=== PATIENT | male | born 1950 | race Caucasian/White ===

== ENCOUNTER 2020-03-06 11:26 | Outpatient (CLI) | payer MEDICARE, MEDICAID, SELFPAY ==
[2020-03-06 11:47] LABS: Hematocrit 39.2 % (37.0-46.0); Hemoglobin 14.1 g/dL (12.4-15.3); Mean Corpuscular Hemoglobin 34.6 pg (27.0-31.0); Mean Corpuscular Volume 96.1 fL (78.0-102.0); Platelet Count Result 316 K/mm3 (150-420); Red Blood Count 4.08 M/mm3 (4.70-6.10); Red Cell Distribution Width 12.4 % (11.6-14.4); White Blood Count 13.4 K/mm3 (4.8-10.8)
[2020-03-06 12:32] LABS: Band Neutrophils Percent 11 % (0-6); Basophils Percent Manual 0 % (0-1); Eosinophils Percent Manual 0 % (1-6); Lymphocytes Absolute Manual 0.53 K/mm3 (1.1-4.5); Lymphocytes Percent Manual 4 % (18-44); Metamyelocytes Percent 2 %; Monocytes Absolute Manual 0.67 K/mm3 (0.1-0.90); Monocytes Percent Manual 5 % (3-9); Myelocytes Percent 1 %; Neutrophils Absolute Manual 11.79 K/mm3 (1.3-6.7); Neutrophils Percent Manual 77 % (46-73); Platelet Estimate Adequate (Adequate); Total Cells Counted 100
[2020-03-06 12:52] LABS: Alanine Aminotransferase 40 U/L (16-63); Albumin Level 2.9 g/dL (3.4-5.0); Alkaline Phosphatase 79 U/L (46-116); Anion Gap 11 mmol/L (8-16); Aspartate Amino Transferase 48 U/L (15-37); Blood Urea Nitrogen 13 mg/dL (7-18); Calcium 8.8 mg/dL (8.5-10.1); Carbon Dioxide 26 mmol/L (21-32); Chloride 87 mmol/L (98-108); Estimated Glomerular Filt Rate > 60; Glucose 134 mg/dL (70-99); Osmolality Calculated 260 mOsm/kg (285-295); Potassium 3.8 mmol/L (3.5-5.1); Prostate Specific Antigen 1.5 ng/mL (< OR = 4.0); Sodium 124 mmol/L (136-145); Thyroid Stimulating Hormone 3.12 uIU/mL (0.36-3.74); Total Protein 6.5 g/dL (6.4-8.2)
[2020-03-07 14:05] LABS: SARS-CoV-2 RNA PCR Negative
== END 2020-03-06 11:27 | disposition home or self-care (01) ==
PROVIDERS: PCP Family Medicine; Visit Provider Family Medicine
DX: R42 Dizziness and giddiness (principal); R10.9 Unspecified abdominal pain; Z12.5 Encounter for screening for malignant neoplasm of prostate; R50.9 Fever, unspecified; Z20.828 Contact with and (suspected) exposure to other viral communicable diseases; D64.9 Anemia, unspecified
CPT/HCPCS: 36415; 80053; 84153; 84443; 85025; 87635; C9803; G0103; U0003

== ENCOUNTER 2020-03-07 15:09 | Emergency (ER) | payer MEDICAID, SELFPAY ==
--- NOTE | ~2020-03-07 | CT_ITS ---
EXAMINATION: CT abdomen pelvis w con EXAM DATE: 03/07/2020 18:12 INDICATION: Sepsis, abdominal distention. TECHNIQUE: Spiral CT of the abdomen and pelvis was performed following intravenous injection of 100 m L Omnipaque 350. Axial, coronal and sagittal images were reviewed. The dose-length product (DLP) fo r this examination was 711.16 mGy-cm. The exposure was tailored according to patient size (auto mA e xposure control), and iterative reconstruction (ASIR) was used as additional dose reduction technique . There is no prior study for comparison. FINDINGS: There are small foci of gas in the right perirectal region, right inguinal region, many mor e foci in the right-sided of the pelvis obturator region and presacral region, and many foci extendin g along the iliopsoas muscle up to the crux of the diaphragm. Origin is uncertain, but fasciitis shou ld be suspected. Recommend emergent surgical consult. I discussed these findings, recommendation with Gus Mckeon MD at 03/07/2020 18:21 CDT. Pancreatic tail cystic lesion measuring 1.2 cm, most likely benign finding but one-year follow-up CT is indicated. The differential diagnosis includes pseudocyst, intraductal papillary mucinous neoplasm (IPMN), mucinous cystic neoplasm (MCN), and the less common serous cystadenoma and neuroendocrine tu mor. Correlate for history of pancreatitis. The liver, spleen, adrenal glands are unremarkable. Gallbladder is unremarkable. No biliary obstruc tion. Portal and splenic veins are patent. Kidneys enhance symmetrically. There is no hydronephros is. The prostate is unremarkable. Small left inguinal fat-containing hernia. Diffuse severe bladde r wall thickening, cystitis which could be acute and/or chronic. There is no retroperitoneal or pelv ic lymphadenopathy. There is mild to moderate scattered arteriosclerotic disease. The appendix is normal. The stomach and small bowel are unremarkable. There is moderate to large am ount of colonic gas. No free intraperitoneal gas. The heart is normal in size. There are no aristeo cardial or pleural effusions. The lung bases are unremarkable. The bones are unremarkable. IMPRESSION: 1. Extensive foci of gas extending in right-sided perineum, presacral region, extending along the co urse of the right iliopsoas muscle from the right groin to the diaphragm. Findings most consistent wi th extensive fasciitis. Emergent surgical consult indicated. 2. Small pancreatic cystic lesion likely benign but one-year follow-up abdomen CT recommended. 3. Acute or chronic cystitis. 4. Moderate to large amount of colonic gas. Reviewed, dictated and finalized at location A. IMPRESSION: 1. Extensive foci of gas extending in right-sided perineum, presacral region, extending along the course of the right iliopsoas muscle from the right groin t o the diaphragm. Findings most consistent with extensive fasciitis. Emergent hunt rgical consult indicated. 2. Small pancreatic cystic lesion likely benign but one-year follow-up abdomen CT recommended. 3. Acute or chronic cystitis. 4. Moderate to large amount of colonic gas.
--- NOTE | ~2020-03-07 | XR_ITS ---
EXAMINATION: XR chest 2V DATE: 03/07/2020 17:05 INDICATION: Generalized body pain, right lower lobe rales, shortness of breath and diaphoresis TECHNIQUE: AP and lateral views of the chest are obtained. COMPARISON: 11/12/2011 FINDINGS: The lungs are free of acute opacities. There is no pleural effusion or pneumothorax. The ca rdiomediastinal silhouette is normal. There is mild thoracic spondylosis. IMPRESSION: 1. No acute cardiopulmonary abnormality. Reviewed, dictated and finalized at location B.
[2020-03-07 15:25] VITALS: BP 125/78; PULSE 116; RESP 18; TEMP 36.8; O2SAT 97
--- NOTE | 2020-03-07 15:47 | ECG_ITS ---
Measurements Intervals [place] Rate: 120 P: 63 ME: 100 QRS: 91 QRSD: 98 T: 27 QT: 320 QTc: 453 Interpretive Statements SINUS TACHYCARDIA RIGHT AXIS DEVIATION DELAYED PRECORDIAL R/S TRANSITION BASELINE WANDER- II, III, AVR, AVL, AVF, V1-V6 ABNORMAL ECG Electronically Signed On 03-07-2020 15:56:31 CDT by Sunil Sanchez D.O.
[2020-03-07] MEDS: IPRATROPIUM 0.5 MG/ALBUTEROL SULFATE 2.5 MG AMPUL.NEB 3 ML INHALATION (15:58)
[2020-03-07 16:00] VITALS: PULSE 107; RESP 18
[2020-03-07] MEDS: SODIUM CHLORIDE 0.9% IV 1,000 ML 999 ML IV CONT ×3 (16:00→19:09)
[2020-03-07 16:07] VITALS: PULSE 106; RESP 18
[2020-03-07 16:22] LABS: Hematocrit 37.3 % (37.0-46.0); Hemoglobin 13.4 g/dL (12.4-15.3); Mean Corpuscular HGB Conc 35.9 g/dL (32.0-36.0); Mean Corpuscular Hemoglobin 34.4 pg (27.0-31.0); Mean Corpuscular Volume 95.6 fL (78.0-102.0); Platelet Count Result 290 K/mm3 (150-420); Red Cell Distribution Width 12.5 % (11.6-14.4); White Blood Count 8.1 K/mm3 (4.8-10.8)
[2020-03-07 16:36] LABS: INR 1.1; Partial Thromboplastin Time 33.4 SEC (22.3-31.6); Prothrombin Time 11.3 Seconds (9.64-11.0)
[2020-03-07 16:42] LABS: Lactic Acid Reflex 5.8 mmol/L (0.4-2.0)
--- NOTE | 2020-03-07 16:43 | ED.SOB ---
HPI - SOB/Dyspnea General Chief Complaint: Back Pain/Injury Stated Complaint: body pain Time Seen by Provider: 03/07/20 15:25 Source: patient and family Mode of arrival: wheelchair Limitations: no limitations History of Present Illness HPI Narrative: 69-year-old man brought in today by his daughter for shortness of breath, sweating, and back pain. He states that the shortness breath and back pain started a week or 2 ago. He has had no falls or injuries as of late. He denies chest pain, nausea, fever, cough, sputum production, abdominal pain, dysuria or change in appetite. He denies any sick contacts. His primary care doctor saw him yesterday and ordered some labs which were fairly [place] [id number] and a negative SARS-CoV-2 RNA test. elicited complaint: shortness of breath Pertinent past history: COPD Onset (ago): week(s) Timing: constant Severity: moderate Exacerbating factors: exertion Relieving factors: rest Known history of: COPD Associated symptoms: wheezing Treatment prior to arrival: none Related Data Home oxygen amount: none Home Medications Medication Instructions Recorded Confirmed No Home Medications 03/07/20 03/07/20 Allergies Allergy/AdvReac Type Severity Reaction Status Date / Time amoxicillin [From Amoxil] Allergy Hives Verified 03/07/20 15:32 Review of Systems Constitutional: Constitutional: Denies chills, Denies fever(s) and Reports weakness Eyes: Eyes: Denies change in vision and Denies photophobia ENT: Denies dysphagia, Denies nasal congestion and Denies sore throat Cardiovascular: Cardiovascular: Denies chest pain and Denies radiating jaw, neck or arm pain Respiratory: Respiratory: Denies cough, Reports dyspnea and Reports wheezing Gastrointestinal: Gastrointestinal: Denies abdominal pain, Denies diarrhea, Denies nausea and Denies vomiting Genitourinary: Genitourinary: Denies dysuria and Denies urinary frequency Musculoskeletal: Musculoskeletal: Denies back pain, Denies arthralgias and Denies joint swelling Integumentary/Breasts: Skin/Breast: Reports pruritus, Reports erythema and Reports rash Neurologic: Reports vertigo, Reports dizziness and Reports syncope Endocrine: Endocrine: Denies polydipsia and Denies polyuria Hematologic/Lymphatic: Hematologic/Lymphatic: Denies easy bleeding and Denies easy bruising Allergic/Immunologic: Allergic/Immunologic: Denies lip swelling and Denies wheezing PMFSH Past Medical History Medical History BPH (benign prostatic hyperplasia) COPD (chronic obstructive pulmonary disease) Surgical History Surgical History H/O vasectomy Social History Social History Smoking status: Current every day smoker Alcohol intake: current Substance use: never Living arrangements: with family Gender identity (if verbalized by the patient): Male Exam Const: General: alert and ill appearing Orientation/consciousness: patient oriented x3 Limitations: no limitations Other: mild moderate acute distress. HENMT: Head: normal to inspection Face and sinus: normal facial exam Mouth: Yes moist mucous membranes Throat: posterior oropharynx normal Eyes: Conjunctivae: conjunctivae normal Pupils: Equal, round and reactive pupils present EOM: EOMs intact bilaterally Neck: Neck: normal visual inspection and no lymphadenopathy Resp: Effort & Inspection: no retractions and no use of accessory muscles Auscultation: rales on the right at the base, wheezes ( Slightly increased expiratory phase.) expiratory wheezes and throughout and diminished lung sounds on the right in the lower lung kaur Other: Mild increased work of breathing. No accessory muscle use. Cardio: Rate: tachycardic Rhythm: regular rhythm Heart sounds: no murmurs GI: Inspection: dist
[2020-03-07 16:45] LABS: Alanine Aminotransferase 42 U/L (16-63); Alkaline Phosphatase 63 U/L (46-116); Anion Gap 16 mmol/L (8-16); Aspartate Amino Transferase 63 U/L (15-37); Bilirubin,Total 0.7 mg/dL (0.00-1.00); Blood Urea Nitrogen 37 mg/dL (7-18); Calcium 8.6 mg/dL (8.5-10.1); Carbon Dioxide 21 mmol/L (21-32); Chloride 89 mmol/L (98-108); Estimated CRCL calculation 34 ml/min; Estimated Glomerular Filt Rate 34; Glucose 161 mg/dL (70-99); Osmolality Calculated 273 mOsm/kg (285-295); Potassium 3.4 mmol/L (3.5-5.1); Sodium 126 mmol/L (136-145); Total Protein 6.2 g/dL (6.4-8.2)
[2020-03-07 16:49] LABS: Band Neutrophils Percent 18 % (0-6); Lymphocytes Percent Manual 5 % (18-44); Monocytes Absolute Manual 0.64 K/mm3 (0.1-0.90); Monocytes Percent Manual 8 % (3-9); Neutrophils Absolute Manual 7.04 K/mm3 (1.3-6.7); Neutrophils Percent Manual 69 % (46-73); Total Cells Counted 100; Troponin I < 0.02 ng/mL (0.00-0.056)
[2020-03-07 16:50] LABS: Basophils Percent Manual 0 % (0-1); Eosinophils Percent Manual 0 % (1-6); Platelet Estimate Adequate (Adequate); Toxic Granulation Present (NORMAL)
--- NOTE | 2020-03-07 17:00 | PC.NURSE ---
duoneb at 1555 given per resp therapist.
[2020-03-07 17:06] VITALS: BP 118/70; PULSE 100; RESP 16; TEMP 36.6; O2SAT 97
[2020-03-07 17:11] LABS: CRP > 25.0 mg/dL (0.0-0.9)
[2020-03-07 17:21] LABS: Lipase 19 U/L (73-393)
--- NOTE | 2020-03-07 17:21 | PC.NURSE ---
pt unable to urinate via urinal. normally incontinent or bowel and bladder. adult protector removed et was saturated. aristeo care provided. new adult protector applied. pt stands to attempt urination with mod assistance to help balance. denies pain or sob at this time. resp even and non-labored.
[2020-03-07 17:30] LABS: BNP 537 pg/mL (0-100)
[2020-03-07 17:49] LABS: Add Urine Microscopic? YES; Appearance Urine Cloudy (Clear); Bilirubin Urine 1+ (Negative); Blood Urine 3+ (Negative); Glucose Urine UA Negative (Negative); Ketones Urine Trace (Negative); Leukocyte Esterase Ur Negative LEU/UL (Negative); Nitrate Urine Negative (Negative); Protein Urine 2+ (Negative); Specific Grav Ur 1.025 (1.010-1.020)
[2020-03-07 17:57] LABS: Color Urine Orange (Yellow); Squamous Epithelial Cell Urine Rare /hpf (Few); WBC Urine None seen /hpf (0-3)
[2020-03-07 17:58] LABS: Amorphous Sediment Urine Heavy; Bacteria Urine Trace /hpf; Mucus Urine None seen /lpf
--- NOTE | 2020-03-07 18:24 | PC.NURSE ---
Call back from Radiologist, spoke to ERP and need for emergent transfer due to results. Call placed to [facility] message left and no answer. Spoke to pt. and family, request transfer to [facility]. Call then placed to [facility].
[2020-03-07 18:47] VITALS: BP 117/77; PULSE 99; RESP 20; O2SAT 97
--- NOTE | 2020-03-07 18:48 | PC.NURSE ---
Accepting Dr. Sullivan at [facility]. Paperwork signed for transfer.
[2020-03-07 18:59] VITALS: BP 117/77; PULSE 100; RESP 20; TEMP 36.7; O2SAT 97
--- NOTE | 2020-03-07 19:12 | PC.NURSE ---
[facility] called for pt. transfer.
[2020-03-07 19:21] LABS: Reflex Lactic Acid Yes or No Add Lactic
[2020-03-07 20:21] LABS: Lactic Acid 3.2 mmol/L (0.4-2.0)
== END 2020-03-07 19:32 | disposition short-term general hospital (02) ==
PROVIDERS: Emergency Provider Emergency Medicine; PCP Family Medicine
DX: A41.9 Sepsis, unspecified organism (principal); R65.20 Severe sepsis without septic shock; N17.9 Acute kidney failure, unspecified; J44.9 Chronic obstructive pulmonary disease, unspecified; F17.200 Nicotine dependence, unspecified, uncomplicated
CPT/HCPCS: 36415; 51701; 71046; 74177; 80053; 81001; 83605; 83690; 83880; 84484; 85025; 85610; 85730; 86140; 87040; 87077; 93005; 94640; 96361; 96365; 96375; 99285; J0713; J3370; J7030; Q9965

== ENCOUNTER 2020-11-13 09:16 | Outpatient (CLI) | payer MEDICARE, MEDICAID, SELFPAY ==
--- NOTE | ~2020-11-13 | XR_ITS ---
XR elbow RT min 3V DATE: 11/13/2020 09:35 INDICATION: Right elbow effusion, lanced by doctor. TECHNIQUE: 4 views COMPARISON: None FINDINGS: There is dorsal soft tissue swelling over the olecranon process, suggesting olecranon bursi tis. Mild coronoid process spurring of the proximal ulna. No fracture or dislocation of the elbow or elbow joint effusion. No periosteal reaction or bone destr uction. IMPRESSION: Dorsal olecranon process area soft tissue swelling suggesting olecranon bursitis Reviewed, dictated and finalized at location B. IMPRESSION: Dorsal olecranon process area soft tissue swelling suggesting olecr anon bursitis
== END 2020-11-13 09:17 | disposition home or self-care (01) ==
PROVIDERS: PCP Family Medicine; Visit Provider Family Medicine
DX: M25.421 Effusion, right elbow (principal)
CPT/HCPCS: 73080

== ENCOUNTER 2022-01-09 15:58 | Emergency (ER) | payer MEDICARE, MEDICAID, SELFPAY ==
--- NOTE | ~2022-01-09 | CT_ITS ---
EXAMINATION: CT brain wo con DATE: 01/09/2022 16:39 INDICATION: CVA-r arm/face numbness/ tingling/weakness . TECHNIQUE: Computed tomography (CT) of the head was performed without intravenous contrast. The mA wa s adjusted according to patient size. Iterative reconstruction technique was employed. The dose-lengt h product was 605.33 mGy-cm. COMPARISON: None FINDINGS: No acute intracranial hemorrhage or extra-axial fluid collection. No hydrocephalus, mass, or herniation. No acute ischemic infarct. Unremarkable dural venous sinus attenuation. No acute osseous abnormality. The aerated spaces are clear. Mild atrophy and chronic white matter change. Atherosclerotic intracranial calcification. Old left ba nevaeh ganglia, infarcts. IMPRESSION: No acute intracranial process. Reviewed, dictated and finalized at location K.
--- NOTE | 2022-01-09 16:09 | ED.NEUROSD ---
HPI - Neuro Symptoms/Deficit General Chief Complaint: Weakness Stated Complaint: hand, facial numbness, abnormal speech Time Seen by Provider: 01/09/22 16:09 Source: patient History of Present Illness HPI Narrative: 71-year-old male, smoker presents to the ER with a 1-1/2 history of -- numbness of right cheek mucosal surface and right hand no motor deficits. Onset (ago): hour(s) ( Started1.5 hrs ago.) Last Observed Normal: 15:00 Timing confirmed by: spouse Severity: mild Quality: numb Relieving factors: none Exacerbating factors: none Context: sudden onset On Anticoagulants: No Associated symptoms: denies other symptoms Treatments Prior to Arrival: none Related Data Home Medications Medication Instructions Recorded Confirmed No Home Medications 03/07/20 01/09/22 Allergies Allergy/AdvReac Type Severity Reaction Status Date / Time amoxicillin [From Amoxil] Allergy Hives Verified 01/09/22 16:18 Review of Systems Review of Systems: All systems reviewed & are unremarkable except as noted in HPI and below Constitutional: Constitutional: Reports as per HPI and Reports no additional constitutional complaints Eyes: Eyes: Reports as per HPI and Reports no additional eye complaints ENT: Reports system reviewed and no additional complaints, except as documented and Reports as per HPI Cardiovascular: Cardiovascular: Reports as per HPI and Reports no additional cardiovascular complaints Respiratory: Respiratory: Reports as per HPI and Reports no additional respiratory complaints Gastrointestinal: Gastrointestinal: Reports as per HPI and Reports no additional gastrointestinal complaints Genitourinary: Genitourinary: Reports no additional male genitourinary complaints and Reports as per HPI Musculoskeletal: Musculoskeletal: Reports no additional musculoskeletal complaints and Reports as per HPI Integumentary/Breasts: Skin/Breast: Reports system reviewed and no additional complaints, except as docu and Reports as per HPI Neurologic: Reports system reviewed and no additional complaints, except as documented, Reports as per HPI and Reports numbness Comments: numbness of mucosal surface of the right cheek and right arm Psychiatric: Psychiatric: Reports no additional psychiatric complaints and Reports as per HPI Endocrine: Endocrine: Reports no additional endocrine complaints Hematologic/Lymphatic: Hematologic/Lymphatic: Reports no additional hematologic/lymphatic complaints and Reports as per HPI Allergic/Immunologic: Allergic/Immunologic: Reports no additional allergic/immunologic complaints and Reports as per HPI [facility] Past Medical History Medical History (Updated 01/09/22 @ 17:56 by Walter Moss MD) BPH (benign prostatic hyperplasia) COPD (chronic obstructive pulmonary disease) Surgical History Surgical History H/O vasectomy Social History Social History Smoking status: Current every day smoker Alcohol intake: current Substance use: never Gender identity (if verbalized by the patient): Male Exam Const: General: healthy appearing and no acute distress Nutritional Appearance: well nourished Orientation/consciousness: patient oriented x3 Limitations: no limitations HENMT: Head: normal to inspection Ears: external ears normal General nose exam: Normal external nose present Face and sinus: normal facial exam Mouth: Yes Normal oral and palatal mucosa present Throat: posterior oropharynx normal Eyes: Conjunctivae: conjunctivae normal Pupils: Equal, round and reactive pupils present EOM: EOMs intact bilaterally Direct Ophthalmoscopy: no photophobia Neck: Neck: normal visual inspection, no lymphadenopathy and no meningeal signs Chest: Chest palpation & inspection: normal inspection of the chest Resp: Effort & Inspection: normal respiratory effort Auscultation: diminish
[2022-01-09 16:10] VITALS: BP 170/100; PULSE 74; RESP 16; TEMP 36; O2SAT 98
[2022-01-09 16:13] LABS: Glucose Point of Care 113 mg/dl (65-105)
--- NOTE | 2022-01-09 16:24 | ECG_ITS ---
Measurements Intervals [place] Rate: 56 P: 53 TN: 145 QRS: -7 QRSD: 103 T: 61 QT: 444 QTc: 431 Interpretive Statements SINUS BRADYCARDIA BASELINE ARTIFACT- I, II, III, AVR, AVL, AVF, V2, V5 BORDERLINE ECG Electronically Signed On 01-09-2022 21:24:16 CDT by Sunil Sanchez D.O.
--- NOTE | 2022-01-09 16:50 | PC.NURSE ---
pt states the numbness in his mouth is getting better. denies pain. voids without difficulty for urine specimen. using right hand without difficulty to collect urine per urinal.
[2022-01-09 16:51] VITALS: BP 162/92; PULSE 68; RESP 16; O2SAT 98
[2022-01-09 17:08] LABS: Basophils Absolute Auto 0.06 K/mm3 (0.00-0.10); Basophils Percent Auto 0.9 % (0.0-1.0); Eosinophils Absolute Auto 0.13 K/mm3 (0.02-0.50); Eosinophils Percent Auto 1.9 % (1.0-6.0); Hematocrit 40.3 % (37.0-46.0); Hemoglobin 13.7 g/dL (12.4-15.3); Immature Granulocyte Absolute 0.02 K/mm3 (0.00-0.00); Immature Granulocyte Percent A 0.3 % (0.0-0.0); Lymphocytes Absolute Auto 2.05 K/mm3 (1.10-4.50); Lymphocytes Percent Auto 30.3 % (18.0-42.0); Mean Corpuscular Hemoglobin 30.9 pg (27.0-31.0); Monocytes Absolute Auto 0.62 K/mm3 (0.10-0.90); Monocytes Percent Auto 9.2 % (2.0-11.0); Neutrophils Absolute Auto 3.9 K/mm3 (1.7-7.2); Neutrophils Percent Auto 57.4 % (50.0-70.0); Platelet Count Result 297 K/mm3 (150-420); Red Blood Count 4.43 M/mm3 (4.70-6.10); White Blood Count 6.8 K/mm3 (4.8-10.8)
[2022-01-09 17:09] LABS: Add Urine Microscopic? NO; Appearance Urine Clear (Clear); Bilirubin Urine Negative (Negative); Blood Urine Negative (Negative); Color Urine Light Yellow (Yellow); Glucose Urine UA Negative (Negative); Ketones Urine Negative (Negative); Leukocyte Esterase Ur Negative (Negative); Nitrate Urine Negative (Negative); Protein Urine Negative (Negative); Specific Grav Ur <= 1.005 (1.010-1.020); Urobilinogen Urine 0.2 mg/dL (0.2-1.0)
[2022-01-09 17:19] LABS: INR 0.9; Prothrombin Time 10.3 Seconds (9.50-12.10)
[2022-01-09 17:36] LABS: Alanine Aminotransferase 40 U/L (16-63); Albumin Level 3.3 g/dL (3.4-5.0); Alkaline Phosphatase 86 U/L (46-116); Anion Gap 10 mmol/L (8-16); Aspartate Amino Transferase 19 U/L (15-37); Bilirubin,Total 0.4 mg/dL (0.00-1.00); Blood Urea Nitrogen 11 mg/dL (7-18); Calcium 8.8 mg/dL (8.5-10.1); Carbon Dioxide 22 mmol/L (21-32); Chloride 107 mmol/L (98-108); Estimated CRCL calculation 73 ml/min; Estimated Glomerular Filt Rate > 60; Glucose 98 mg/dL (70-99); Magnesium 1.9 mg/dL (1.8-2.4); Osmolality Calculated 287 mOsm/kg (285-295); Potassium 3.8 mmol/L (3.5-5.1); Sodium 139 mmol/L (136-145); Troponin I 7.2 ng/L (0.00-60.4)
[2022-01-09 17:38] LABS: NT Pro B Type Natriuretic Pept 103 pg/mL (0-125)
[2022-01-09 17:50] VITALS: BP 152/92; PULSE 60; RESP 14; O2SAT 96
== END 2022-01-09 18:01 | disposition home or self-care (01) ==
PROVIDERS: Emergency Provider Internal Medicine Critical Care Medicine; PCP Family Medicine
DX: I10 Essential (primary) hypertension (principal); F41.9 Anxiety disorder, unspecified; J44.9 Chronic obstructive pulmonary disease, unspecified; F17.200 Nicotine dependence, unspecified, uncomplicated
CPT/HCPCS: 36415; 70450; 80053; 81003; 82948; 83735; 83880; 84484; 85025; 85610; 85730; 93005; 99284

== ENCOUNTER 2022-01-16 10:06 | Outpatient (CLI) | payer MEDICARE, MEDICAID, SELFPAY ==
--- NOTE | ~2022-01-16 | MR_ITS ---
EXAMINATION: MR brain/brain stem wo/w con DATE: 01/16/2022 11:50 INDICATION: Numbness of the right palm and right-sided face x1 week. TECHNIQUE: Magnetic resonance imaging (MRI) of the brain and brainstem was performed with 16 mL Multi Nikki intravenous contrast. Sequences included sagittal and axial T1-weighted SE, axial diffusion-brennon ghted FS EPI ASSET, axial T2*-weighted GRE, axial T2-weighted FLAIR Propeller, and axial T2-weighted Propeller. Postcontrast axial and coronal T1-weighted SE was obtained. Apparent diffusion coefficient (ADC) maps were created. COMPARISON: CT brain 01/09/2022 FINDINGS: Focal infarct in the left thalamus, hyperintense on diffusion-weighted images, mildly hypointense on ADC map, mild hyperintensity on T2 and FLAIR, with mild enhancement, corresponding to acute infarct ( 24 hours to 1 week). Focal old left thalamic and right basal ganglia lacunar infarcts. No MRI evidenc e of hemorrhage or extra-axial collection. No suspicious foci of susceptibility to suggest prior intr aparenchymal hemorrhage. Mild scattered focal periventricular white matter changes of chronic small v essel disease. Mild atrophy. The ventricles are proportional to brain volume. Basal cisterns are pres erved. Flow voids are present. Orbits are within normal limits. Bilateral maxillary retention cysts o r polyps. IMPRESSION: 1. Focal acute ischemic infarct in the left thalamus. Reviewed, dictated and finalized at location K.
== END 2022-01-16 10:07 | disposition home or self-care (01) ==
LOC: CHSIMG 10:07
PROVIDERS: PCP Family Medicine; Visit Provider Family Medicine
DX: R20.0 Anesthesia of skin (principal)
CPT/HCPCS: 70553; A9577

== ENCOUNTER 2022-01-20 07:43 | Outpatient (CLI) | payer MEDICARE, MEDICAID, SELFPAY ==
--- NOTE | ~2022-01-20 | US_ITS ---
EXAMINATION: US carotid duplex BI DATE: 01/20/2022 08:27 INDICATION: Right-sided facial and hand numbness TECHNIQUE: Grayscale, color Doppler, and pulsed Doppler images of the cervical carotid arteries were obtained. The degree of vessel stenosis is placed in one of the following categories: normal, <50%, 5 0-69%, >=70% but less than near-occlusion, near-occlusion, or total occlusion. Note that percent sten osis relative to normal distal artery lumen diameter is indirectly measured from velocity measurement s as described by Gurwinder, et al. Radiology 2003; 229:340-346. Notes: Normal: Peak systolic velocity <125 centimeters/sec and no plaque <50%. Peak systolic velocity <125 ( EDV <40; ICA/CCA PSV ratio <2.0; used these factors only a tandem lesions or low cardiac output or co ntralateral disease) 50-69 %: PSV 125-230 (EDV 40-100; ratio 2-4) >= 70% but less than near occlusion: PSV greater than 230 (EDV > 100; ratio> 4.0) Near Occlusion: PSV that is variable; markedly narrowed lumen Occlusion: Absent flow on color/spectral Doppler and no lumen on marrero scale. COMPARISON: None. FINDINGS: RIGHT: The right common carotid artery (CCA) peak systolic velocity (PSV) is 80 cm/s. The right internal car otid artery (ICA) PSV is 65 cm/s. The right ICA end-diastolic velocity (EDV) is 22 cm/s. The right IC A/CCA PSV ratio is 0.8. The external carotid artery (ECA) PSV is 63 cm/s. There is antegrade flow in the right vertebral artery. LEFT: The left CCA PSV is 75 cm/s. The left ICA PSV is 61 cm/s. The left ICA EDV is 20 cm/s. The left ICA/C CA PSV ratio is 0.8. The ECA PSV is 69 cm/s. There is antegrade flow in the left vertebral artery. IMPRESSION: 1. Less than 50% stenosis in the right internal carotid artery by sonographic criteria. 2. Less than 50% stenosis in the left internal carotid artery by sonographic criteria. Reviewed, dictated and finalized at location A. IMPRESSION: 1. Less than 50% stenosis in the right internal carotid artery by sonographic c riteria. 2. Less than 50% stenosis in the left internal carotid artery by sonographic cr damiánia.
[2022-01-20 09:28] LABS: Cholesterol 195 mg/dL (0-200); HDL Direct 37 mg/dL (40-60); LDL Cholesterol Calculated 139 mg/dL (<130); Triglycerides 95 mg/dL (0-150)
[2022-01-21 09:34] LABS: LDL Cholesterol Direct 134 mg/dL (0-130)
== END 2022-01-20 07:44 | disposition home or self-care (01) ==
PROVIDERS: PCP Family Medicine; Visit Provider Family Medicine
DX: I63.81 Other cerebral infarction due to occlusion or stenosis of small artery (principal); I10 Essential (primary) hypertension; E75.6 Lipid storage disorder, unspecified
CPT/HCPCS: 36415; 80061; 83721; 93880

== ENCOUNTER 2022-01-25 14:09 | Outpatient (CLI) | payer MEDICARE, MEDICAID, SELFPAY ==
--- NOTE | 2022-01-25 01:00 | ECHO_ITS ---
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 Summary 1. Complete two-dimensional, color flow and Doppler transthoracic echocardiogram is performed. 2. Left ventricular chamber dimension is normal. 3. Left ventricular systolic function is normal, estimated at 65-70%. 4. The left ventricular diastolic function is grade I diastolic dysfunction. 5. E/e' 8 is minimally elevated. 6. There is trace mitral valve regurgitation. 7. There is trace tricuspid valve regurgitation. 8. No pulmonary hypertension, estimated pulmonary arterial systolic pressure is 30 mmHg. Left Ventricle E/e' 8 is minimally elevated. Left ventricular chamber dimension is normal. Left ventricular systolic function is normal, estimated at 65-70%. The left ventricular diastolic function is grade I diastolic dysfunction. Right Ventricle Right ventricular systolic function is normal and with normal TAPSE 2.8 cm. Right ventricular chamber dimension is normal. Left Atria Left atrial chamber dimension is normal. Right Atria Right atrial chamber dimension is normal. Aortic Valve The aortic valve is trileaflet. There is no aortic valve stenosis. There is no aortic valve regurgitation. Pulmonic Valve There is no pulmonic regurgitation. Mitral Valve There is no mitral valve stenosis. There is trace mitral valve regurgitation. Tricuspid Valve There is trace tricuspid valve regurgitation. No pulmonary hypertension, estimated pulmonary arterial systolic pressure is 30 mmHg. Pericardium/Pleural There is no pericardial effusion. Inferior Vena Cava Normal inferior vena cava with >50% collapse upon inspiration consistent with normal right atrial pressure, 5 mmHg. Aorta The aortic root size at the sinus of Valsalva is normal. Left Ventricular Outflow Tract Name Value Normal LVOT 2D LVOT Diameter 2.0 cm LVOT Doppler LVOT Peak Velocity 83 cm/s LVOT Peak Gradient 3 mmHg LVOT Mean Gradient 1 mmHg LVOT VTI 17 cm LVOT VTI/AV VTI Ratio 0.7 LVOT Stroke Volume 52 ml Pulmonic Valve Name Value Normal RVOT Doppler
== END 2022-01-25 14:10 | disposition home or self-care (01) ==
LOC: CHSIMG 14:11
PROVIDERS: PCP Family Medicine; Visit Provider Family Medicine
DX: I63.81 Other cerebral infarction due to occlusion or stenosis of small artery (principal)
CPT/HCPCS: 93306

== ENCOUNTER 2022-01-25 15:04 | Outpatient (RCR) | payer MEDICARE, MEDICAID, SELFPAY ==
--- NOTE | 2022-01-25 14:06 | PTOPEVAL ---
Thank you for referring Dom Olea to [facility].? The patient is scheduled to be seen for therapy? __2__x/week for 10 visits. Please review, sign, date and return this plan of care ARTEM. I agree with and certify that the following plan of care is medically necessary. Referring Physician Date Admitting Provider: Attending Provider: Michael Crews MD Referring Provider: *PT Outpatient Evaluation Start: 01/25/22 13:06 Freq: Status: Active Protocol: Document 01/25/22 13:06 MICHAEL (Rec: 01/25/22 14:05 MICHAEL [id number]) Therapy Assessment Status Assessment Status Assessment Status Evaluation Outpatient Past Medical History Gastrointestinal History Hx Other Gastrointestinal Disorders Yes: rectal abcess - resolved Genitourinary History Hx Benign Prostatic Hyperplasia Yes Other History Hx Other Surgeries Yes: vasectomy Evaluation Information Problem Diagnosis CVA right side parathesia Onset 01/09/22 Subjective Information Pt. reports on 01/09/22 he was Query Text:As Reported By Patient/ coming home from work and Family started feeling numbness in the right hand and his face. He reports that he went to the ER about 1 1/2 hours after symptoms. He reports he was discharged as symptoms decreased. He reports that he followed up with his doctor and underwent MRI which revealed a CVA. He reports that he notices some difficulty in regards to dropping objects with the right hand. He states that he has also noticed some balance issues since having his stroke. Pt. reports that his goal is to improve his balance and strength. Prior Level of Function Activity Level (Last 3 Months) Hand Dominance Right Activity of Daily Living Ability Independent Indoor/Home Mobility Independent Community Mobility Independent Stairs Ability Independent Functional Cognition (Planning, Shopping Independent , Taking Medications) Cooking Yes Cleaning Yes Laundry Yes Shopping Yes Driving Yes Pain Assessment Self Report Self Report Pain Level 0 Pain Score Pain Score
--- NOTE | 2022-01-26 17:26 | OTOPEVAL ---
Thank you for referring Dom Olea to [facility].? The patient is scheduled to be seen for therapy? ____x/week for ___ weeks. Please review, sign, date and return this plan of care ARTEM. I agree with and certify that the following plan of care is medically necessary. Referring Physician Date Admitting Provider: Attending Provider: Michael Crews MD Referring Provider: *OT Outpatient Evaluation Start: 01/26/22 08:00 Freq: Status: Active Protocol: Document 01/26/22 13:51 [facility] (Rec: 01/26/22 15:57 [facility] [id number]) Therapy Assessment Status Assessment Status Assessment Status Evaluation Outpatient Past Medical History Gastrointestinal History Hx Other Gastrointestinal Disorders Yes: rectal abcess - resolved Genitourinary History Hx Benign Prostatic Hyperplasia Yes Other History Hx Other Surgeries Yes: vasectomy Evaluation Information Problem Diagnosis R sided parestesia Onset 01/18/2022 Subjective Information The patient presents to OT Query Text:As Reported By Patient/ this date due to numbness and Family tingling in R hand and R side of face. The patient stated that 2 weeks ago, the patient was planning to return to work and experienced weakness and numbness in his hand and face and went to the hospital. After CT scan the patient was told he had a minor stroke which has affected his ability to perform self care tasks. The patient's main complaint is the numbness in his R hand and the ability to maintain objects within his hand without dropping the items. Prior Level of Function Home Setting Living Situation With Spouse Mobility Assistive Devices (Used Last 3 None Months) Grooming Activities of Daily Living None Devices Pain Assessment Timing of Pain Assessment Timing of Pain Assessment Assessment Self Report Self Report Pain Level 0 Pain Score Pain Score 0: Self Report Additional Pain Score Comments The patient reported no pain this date. Upper Extremity Range of Motion General Upper Extremity Range of Motion Reason Not Measured WNL/Left,WNL/Right Upper Extremity Muscle Strength Testing General Upper Extremity Strength Reason Not Measured WNL/Left,WFL/Right Gross Upper Extremity Strength Comments R wrist flexion/extension: 4/5 [place]
--- NOTE | 2022-02-18 15:48 | PTOPEVAL ---
Thank you for referring Dom Olea to [facility].? The patient is scheduled to be seen for therapy? ____x/week for ___ weeks. Please review, sign, date and return this plan of care ARTEM. I agree with and certify that the following plan of care is medically necessary. Referring Physician Date Admitting Provider: Attending Provider: Michael Crews MD Referring Provider: *PT Outpatient Evaluation Start: 01/25/22 13:06 Freq: Status: Active Protocol: Document 02/18/22 15:06 [facility] (Rec: 02/18/22 15:48 [facility] [email or web address]) Therapy Assessment Status Assessment Status Assessment Status Progress Outpatient Past Medical History Gastrointestinal History Hx Other Gastrointestinal Disorders Yes: rectal abcess - resolved Genitourinary History Hx Benign Prostatic Hyperplasia Yes Other History Hx Other Surgeries Yes: vasectomy Evaluation Information Problem Diagnosis R sided parestesia Onset 01/18/2022 Subjective Information patient reports he feels Query Text:As Reported By Patient/ pretty good this date. he Family reports he feels a little low on energy this date. he reports he has had no falls at home. Pain Assessment Timing of Pain Assessment Timing of Pain Assessment Assessment Self Report Self Report Pain Level 0 Pain Score Pain Score 0: Self Report Balance Assessment Tinetti Balance Assessment Sitting Balance Steady, safe Ability to Arise Able, w/o using arms Attempts to Arise Arises on 1st attempt Immediate Standing Balance Steady w/o support Standing Balance Steady, wide stance Nudged Response Steady Standing with Eyes Closed Steady Step Pattern Turning 360 Degrees Discontinuous steps Stability Turning 360 Degrees Steady Sitting Down Safe, steady Initiation of Gait No hesitancy Right Foot Step Length Does pass stance foot Right Foot Step Height Completely clears floor Left Foot Step Length Does pass stance foot Left Foot Step Height Completely clears floor Step Symmetry Step length appears equal Step Continuity Steps appear continuous Path Description Mild/moderate deviation Trunk Description No sway but posturing Walking Stance Heels apart Assistive Devices Used No Tinetti Composite Score (Balance + Gait) 23 (/28) Interpretation of Scores At risk for falls (19-24) Time Up Go (TUG) Timed Up and Go Test (TUG) (Seconds) 11 Assistive Devices None 5 Time Sit to Stand Time
--- NOTE | 2022-03-16 08:47 | OTOPEVDC ---
Assessment and note entered by Hyun Whitman, OT Thank you for referring Dom Olea to [facility].? An evaluation has been completed. No further treatment is needed. Evaluation Information Assessment Status Discharge Reported Pain Level Pain Score 0: Self Report Assessment OT Clinical Summary The patient has demonstrated increase in pinch strength, trust administrative assistant strength, fine motor coordination and changes in sensation of R hand throughout OT services. The patient demonstrates slightly below normal fine motor coordination, pinch strength ranging from 13 to 15 pounds, and changes in sensation with continued numbness and tingling to R hand thumb, index and middle finger. The patient reports increased strength to R hand and better fine motor coordination and reports that he is prepared for discharge this date. The patient has met trust administrative assistant strength and UE strength goals. The patient has demonstrated 100% knowledge and return demonstration of UE HEP for sensation, trust administrative assistant/pinch strength and fine motor coordination needed to continue to improve pinch strength, sensation to R hand and in order to maintain trust administrative assistant strength at home to perform all self care tasks and leisure activities. The patient has demonstrated good progress toward goals and no longer requires the skills of a therapist to perform exercises. Plan of Care OT Services Indicated No
== END 2022-03-16 16:50 | disposition home or self-care (01) ==
LOC: CHSPT 15:04
PROVIDERS: PCP Family Medicine; Visit Provider Family Medicine
DX: R26.9 Unspecified abnormalities of gait and mobility (principal); I69.351 Hemiplegia and hemiparesis following cerebral infarction affecting right dominant side
CPT/HCPCS: 97110; 97112; 97161; 97165; 97530

== ENCOUNTER 2022-04-19 13:52 | Outpatient (RCR) | payer MEDICARE, MEDICAID, SELFPAY ==
--- NOTE | 2022-04-20 09:42 | STOPEVAL1 ---
Assessment and note entered by Samreen Tan PYTHON WEB DEVELOPER These treatments will address the objective and functional deficits as defined above. The patient will be advanced safely and appropriately in order for the patient to progress towards his/her prior level of function. Additional exercises will be introduced and as well as a comprehensive home exercise program upon discharge, if needed, ?to ensure carryover of functional gains achieved in the clinic. This treatment plan has been reviewed and agreement upon by the patient.
--- NOTE | 2022-05-13 11:48 | STOPDC ---
Assessment and note entered by GREY Carter Evaluation Information Assessment Status Discharge - Pt Not Presen Reported Pain Level Pain Score 0: Self Report Assessment ST Clinical Summary Patient was referred by his neurologist for an ST evaluation due to ongoing dysphagia since his CVA in December of 2021. Patient reported to have difficulty managing his own secretions with frequent drooling on the right side of his mouth, pocketing in right cheek and coughing with food/ fluids. Patient has participated well throughout speech therapy and has presented with improvements in oropharyngeal function. He feels that he is tolerating food/fluid much better and has increased sensation in the right side of his tongue/cheeks. Patient's MASA score is now 198 indicated no dyspagia at this time. Patient will be discharged from ST at this time. Plan of Care ST Services Indicated No ST Services Indicated No Treatment Frequency and Patient discharged from ST at this time. Duration
== END 2022-05-13 17:15 | disposition home or self-care (01) ==
LOC: CHSST 13:52
PROVIDERS: PCP Family Medicine
DX: Z86.73 Personal history of transient ischemic attack (TIA), and cerebral infarction without residual deficits (principal); R13.10 Dysphagia, unspecified
CPT/HCPCS: 92526; 92610

== ENCOUNTER 2023-06-14 13:51 | Outpatient (CLI) | payer MEDICARE, MEDICAID, SELFPAY ==
[2023-06-14 14:06] LABS: Basophils Absolute Auto 0.04 K/mm3 (0.00-0.10); Basophils Percent Auto 0.7 % (0.0-1.0); Eosinophils Absolute Auto 0.16 K/mm3 (0.02-0.50); Eosinophils Percent Auto 2.6 % (1.0-6.0); Hematocrit 41.4 % (37.0-46.0); Immature Granulocyte Absolute 0.01 K/mm3 (0.00-0.00); Immature Granulocyte Percent A 0.2 % (0.0-0.0); Lymphocytes Absolute Auto 2.26 K/mm3 (1.10-4.50); Lymphocytes Percent Auto 37.4 % (18.0-42.0); Mean Corpuscular HGB Conc 33.8 g/dL (32.0-36.0); Mean Corpuscular Hemoglobin 32.1 pg (27.0-31.0); Mean Platelet Volume 8.7 fl (8.7-11.0); Monocytes Absolute Auto 0.52 K/mm3 (0.10-0.90); Monocytes Percent Auto 8.6 % (2.0-11.0); Neutrophils Absolute Auto 3.1 K/mm3 (1.7-7.2); Neutrophils Percent Auto 50.5 % (50.0-70.0); Platelet Count Result 278 K/mm3 (150-420); Red Blood Count 4.36 M/mm3 (4.70-6.10); Red Cell Distribution Width 12.8 % (11.6-14.4)
[2023-06-14 14:14] LABS: Appearance Urine Clear (Clear); Bilirubin Urine Negative (Negative); Blood Urine Negative (Negative); Color Urine Light Yellow (Yellow); Glucose Urine UA Negative (Negative); Ketones Urine Negative (Negative); Leukocyte Esterase Ur Negative (Negative); Nitrate Urine Negative (Negative); Protein Urine Negative (Negative); Specific Grav Ur <= 1.005 (1.010-1.020); Urobilinogen Urine 0.2 mg/dL (0.2-1.0)
[2023-06-14 14:31] LABS: Creatinine Urine < 13.00 mg/dL (40-278); Microalbumin Urine Random < 13.0 mg/L
[2023-06-14 14:32] LABS: Add Urine Microscopic? NO
[2023-06-14 14:45] LABS: Alanine Aminotransferase 68 U/L (16-63); Alkaline Phosphatase 84 U/L (46-116); Anion Gap 7 mmol/L (8-16); Aspartate Amino Transferase 34 U/L (15-37); Bilirubin,Total 0.5 mg/dL (0.00-1.00); Blood Urea Nitrogen 6 mg/dL (7-18); Calcium 9.2 mg/dL (8.5-10.1); Carbon Dioxide 30 mmol/L (21-32); Chloride 102 mmol/L (98-108); Estimated Glomerular Filt Rate > 60; Glucose 81 mg/dL (70-99); Osmolality Calculated 284 mOsm/kg (285-295); Potassium 4.3 mmol/L (3.5-5.1); Sodium 139 mmol/L (136-145)
[2023-06-14 15:08] LABS: Thyroid Stimulating Hormone 3.03 uIU/mL (0.36-3.74)
== END 2023-06-14 13:52 | disposition home or self-care (01) ==
LOC: CHSLAB 13:54
PROVIDERS: PCP Family Medicine; Visit Provider Family Medicine
DX: I10 Essential (primary) hypertension (principal); E78.2 Mixed hyperlipidemia
CPT/HCPCS: 36415; 80053; 81003; 82043; 84443; 85025

== ENCOUNTER 2023-10-10 11:51 | Outpatient (CLI) | payer MEDICARE, SELFPAY ==
[2023-10-10 12:07] LABS: Basophils Absolute Auto 0.05 K/mm3 (0.00-0.10); Basophils Percent Auto 0.8 % (0.0-1.0); Eosinophils Absolute Auto 0.12 K/mm3 (0.02-0.50); Hematocrit 38.7 % (37.0-46.0); Hemoglobin 13.2 g/dL (12.4-15.3); Immature Granulocyte Absolute 0.02 K/mm3 (0.00-0.00); Immature Granulocyte Percent A 0.3 % (0.0-0.0); Lymphocytes Absolute Auto 1.86 K/mm3 (1.10-4.50); Lymphocytes Percent Auto 31.3 % (18.0-42.0); Mean Corpuscular HGB Conc 34.1 g/dL (32-36); Mean Corpuscular Hemoglobin 31.8 pg (27.0-31.0); Mean Corpuscular Volume 93.3 fL (78.0-102.0); Mean Platelet Volume 8.9 fl (8.7-11.0); Monocytes Absolute Auto 0.47 K/mm3 (0.10-0.90); Monocytes Percent Auto 7.9 % (2.0-11.0); Neutrophils Absolute Auto 3.42 K/mm3 (1.70-7.20); Neutrophils Percent Auto 57.7 % (50.0-70.0); Platelet Count Result 269 K/mm3 (150-420); Red Blood Count 4.15 M/mm3 (4.70-6.10); Red Cell Distribution Width 13.2 % (11.6-14.4); White Blood Count 5.9 K/mm3 (4.8-10.8)
[2023-10-10 12:14] LABS: Creatinine Urine 21.22 mg/dL (40-278); MALB Creatinine Ratio 61.2 mg/g (0-30); Microalbumin Urine Random < 13.0 mg/L
[2023-10-10 12:51] LABS: Anion Gap 6 mmol/L (4-12); Blood Urea Nitrogen 6 mg/dL (7-18); Calcium 8.8 mg/dL (8.5-10.1); Carbon Dioxide 31 mmol/L (21-32); Chloride 105 mmol/L (98-108); Estimated Glomerular Filt Rate > 60; Glucose 79 mg/dL (70-99); Osmolality Calculated 290 mOsm/kg (285-295); Potassium 4.3 mmol/L (3.5-5.1); Sodium 142 mmol/L (136-145)
== END 2023-10-10 11:52 | disposition home or self-care (01) ==
PROVIDERS: PCP Family Medicine; Visit Provider Family Medicine
DX: I10 Essential (primary) hypertension (principal)
CPT/HCPCS: 36415; 80048; 82043; 85025

== ENCOUNTER 2023-10-25 07:48 | Outpatient (CLI) | payer MEDICARE, MEDICAID, SELFPAY ==
--- NOTE | ~2023-10-25 | US_ITS ---
EXAMINATION: US aorta [facility] DATE: 10/25/2023 09:08 CDT INDICATION: Abdominal aortic aneurysm screening TECHNIQUE: Grayscale, color Doppler, and pulsed Doppler images of the aorta and common iliac arteries were obtained. COMPARISON: None. FINDINGS: The proximal aorta measures 2.1 cm greatest sagittal dimension. The mid aorta measures 1.8 cm greates t sagittal dimension. The distal aorta measures 1.9 cm greatest sagittal dimension. The right common internal iliac artery measures 1 cm. The left common iliac artery measures 1 cm. IMPRESSION: 1. Mild atherosclerosis with normal caliber aorta. No aneurysm. Reviewed, dictated and finalized at location B.
== END 2023-10-25 07:49 | disposition home or self-care (01) ==
LOC: CHSIMG 07:51
PROVIDERS: PCP Family Medicine; Visit Provider Family Medicine
DX: Z13.6 Encounter for screening for cardiovascular disorders (principal); I70.0 Atherosclerosis of aorta
CPT/HCPCS: 76706

== ENCOUNTER 2024-10-18 10:20 | Outpatient (CLI) | payer MEDICARE, MEDICAID, SELFPAY ==
[2024-10-18 10:38] LABS: Basophils Absolute Auto 0.08 K/mm3 (0.00-0.10); Basophils Percent Auto 0.9 % (0.0-1.0); Eosinophils Absolute Auto 0.36 K/mm3 (0.02-0.50); Eosinophils Percent Auto 4.1 % (1.0-6.0); Hematocrit 40.3 % (37.0-46.0); Immature Granulocyte Absolute 0.03 K/mm3 (0.00-0.00); Immature Granulocyte Percent A 0.3 % (0.0-0.0); Lymphocytes Absolute Auto 1.89 K/mm3 (1.10-4.50); Lymphocytes Percent Auto 21.6 % (18.0-42.0); Mean Corpuscular HGB Conc 32.3 g/dL (32-36); Mean Corpuscular Volume 93.1 fL (78.0-102.0); Mean Platelet Volume 8.5 fl (8.7-11.0); Monocytes Absolute Auto 0.65 K/mm3 (0.10-0.90); Monocytes Percent Auto 7.4 % (2.0-11.0); Neutrophils Absolute Auto 5.76 K/mm3 (1.70-7.20); Neutrophils Percent Auto 65.7 % (50.0-70.0); Platelet Count Result 334 K/mm3 (150-420); Red Blood Count 4.33 M/mm3 (4.70-6.10); Red Cell Distribution Width 13.8 % (11.6-14.4); White Blood Count 8.8 K/mm3 (4.8-10.8)
[2024-10-18 10:48] LABS: Add Urine Microscopic? YES; Appearance Urine Clear (Clear); Bilirubin Urine Negative (Negative); Blood Urine Negative (Negative); Color Urine Yellow (Yellow); Glucose Urine UA Trace (Negative); Ketones Urine Negative (Negative); Leukocyte Esterase Ur Negative (Negative); Nitrate Urine Negative (Negative); Protein Urine Trace (Negative); Specific Grav Ur 1.015 (1.010-1.020); pH Urine 6.5 (5.0-8.0)
[2024-10-18 10:55] LABS: Bacteria Urine Trace /hpf; RBC Urine None seen /hpf (0-2); Squamous Epithelial Cell Urine Few /hpf (Few); WBC Urine None seen /hpf (0-3)
[2024-10-18 10:56] LABS: Mucus Urine Moderate /lpf
[2024-10-18 11:18] LABS: Creatinine Urine 132.77 mg/dL (40-278); MALB Creatinine Ratio 9.7 mg/g (0-30); Microalbumin Urine Random < 13.0 mg/L
[2024-10-18 11:25] LABS: Alanine Aminotransferase 50 U/L (16-63); Albumin Level 3.4 g/dL (3.4-5.0); Alkaline Phosphatase 274 U/L (46-116); Anion Gap 8 mmol/L (4-12); Aspartate Amino Transferase 36 U/L (15-37); Bilirubin,Total 0.5 mg/dL (0.00-1.00); Blood Urea Nitrogen 12 mg/dL (7-18); Calcium 9.2 mg/dL (8.5-10.1); Carbon Dioxide 28 mmol/L (21-32); Chloride 104 mmol/L (98-108); Estimated Glomerular Filt Rate > 60; Glucose 108 mg/dL (70-99); Osmolality Calculated 290 mOsm/kg (285-295); Potassium 4.6 mmol/L (3.5-5.1); Sodium 140 mmol/L (136-145); Total Protein 7.3 g/dL (6.4-8.2)
--- OUTSIDE RECORDS SUMMARY | 2024-10-18 11:38 | XMS_ITS | Clinical Summary ---
Author Organization [facility] Address [address] [place] [address] Phone Care Team Providers Care Dispatcher Refinery Name Role Phone Michael Crews MD Primary Care Provider [phone] Kenneth Lundberg MD Unavailable [phone] Montse Johnson APRN, COMPUTER GAME PROGRAMMER Unavailable + [phone] Allergies Active Allergy Reactions Criticality Noted Date Comments Penicillins Unknown 01/20/2022 Medications lisinopril (PRINIVIL, ZESTRIL) 10 MG Tablet Take 10 mg by mouth daily. Active atorvastatin (LIPITOR) 80 MG Tablet Take 80 mg by mouth daily. 02/12/2022 Active aspirin 81 MG Chewable Tablet Take 81 mg by mouth daily. Active Active Problems Problem Noted Date Diagnosed Date Other retroperitoneal abscess 04/30/2020 Hypokalemia 04/30/2020 Physical debility 03/29/2020 Pelvic abscess in male 03/29/2020 Bilateral lower extremity edema 03/29/2020 Perirectal abscess 03/27/2020 Family History Relation Name Status Comments Father Mother Social History Tobacco Use Types Packs/Day Years Used Date Smoking Tobacco: Every Day Cigarettes 0.5 11.3 Started: 06/27/2013 Smokeless Tobacco: Never Tobacco Cessation:Ready to Q uit: Yes Alcohol Use Standard Drinks/Week Comments Not Currently 0 (1 standard drink = 0.6 oz pur e alcohol) Sex and Gender Information Value Date Recorded Sex Assigned at Not on file Legal Sex Male 4:51 PM CDT Gender Identity Not on file Sexual Orientation Not on file Last Filed Vital Signs Vital Sign Reading Time Taken Comments Blood Pressure 120/76 01/10/2023 10:48 AM CDT Pulse 73 01/10/2023 10:48 AM CDT Temperature 35.9 C (96.6 F) 01/10/2023 10:48 AM CDT Respiratory Rate 18 01/10/2023 10:48 AM CDT Oxygen Saturation 97% 01/10/2023 10:48 AM CDT Inhaled Oxygen Concentration - - Weight 72.1 kg (159 lb) 01/10/2023 10:48 AM CDT Height 177.8 cm (5' 10 ) 01/10/2023 10:48 AM CDT Body Mass Index 22.81 01/10/2023 10:48 AM CDT Plan of Treatment Health Maintenance Due Date Last Done Comments Hepatitis C Virus (HCV) Screening 1950 TdaP Immunization 1950 Pneumococcal Immunization (5 0+ years) (1 of 2 - PCV) 12/06/1970 Colonoscopy 12/06/1996 Colorectal Cancer Screening 12/06/1996 Cologuard 12/06/2001 Immunochemical Fecal Occult Blood 12/06/2001 Zoster Immunization (1 of 2) 12/06/2001 Influenza Immunization (#1) 2024 SARS-COV-2 Immunization (2 - 2023- season) 2024 09/02/2020 Respiratory Syncytial Virus (RSV) Immunization (Adult) (1 - 1-dose 75+ series) 12/06/2026 Hepatitis B Immunization Aged Out No longer eligible based on patient's age to complete this topic Meningococcal Immunization (ACWY) Aged Out No longer eligible based on patient's age to complete this topic Rotavirus Immunization Aged Out No lo nger eligible based on patient's age to complete this topic [facility] Care Teams Dispatcher Refinery Relationship Specialty Start Date End Date Michael Crews MD [address] [place] [address] PCP - General Pediatrics 01/20/22 Kenneth Lundberg MD [address] [place] [address] Consulting Physician Neurology 01/20/22 Montse Johnson, FIRE ENGINE OPERATOR, COMPUTER GAME PROGRAMMER [address] [place] [address] Nurse Practitioner Advanced Practice Nurse 02/26/22
--- OUTSIDE RECORDS SUMMARY | 2024-10-18 11:38 | XMS_ITS | Clinical Summary ---
Author Organization [facility] [employer] Address [address] [place] [address] Care Team Providers Care Marine Equipment Design Engineer Name Role Phone Michael Crews MD Primary Care Provider [phone]- [phone] Source Comments [facility] [employer],non-owned Affiliates and Associated Physician Practices is amultiple site organization consisting of ambulatory clinics and hospital sitesin [place], [place], [place] and [place]. This disclosure is being madepursuant to the Care Everywhere program and may not contain all information available regarding this patient. Last updated 18.[facility] [employer] Allergies No known active allergies Medications * Be aware that medications may not be up to date on this document. Alwaysverify current medications with the patient. triamcinolone acetonide (KENALOG) 0.1 % ointmentIndicati ons:Rash and other nonspecific skin eruption Apply to affected skin areas twice daily. 30 days supply. 80 g 9 Active mupirocin (BACTROBAN) 2 % ointment Apply to affected area on the foot BID x 10 days and as directed to skin folds BID x 5 days. 30 g 2 9 Active urea (CARMOL;VANAMIDE ) 40 % cream Please apply a thin layer to the thickened skin on the feet once daily in the morning. 85 g 1 9 Active Active Problems No known active problems Social History Tobacco Use Types Packs/Day Years Used Date Smoking Tobacco: Every Day Cigarettes Smokeless Tobacco: Never Tobacco Cessation:Counseling Given: No Alcohol Use Standard Drinks/Week Comments Yes 20 (1 standard drink = 0.6 oz pu re alcohol) Sex and Gender Information Value Date Recorded Sex Assigned at Not on file Legal Sex Male 6:24 PM PUPPY SITTER Gender Identity Not on file Sexual Orientation Not on file Plan of Treatment Health Maintenance Due Date Last Done Comments COLOGUARD (AGES 45-75) - COL ON CA SCREENING 1950 COLON MONITORING 1950 COLONOSCOPY - COLON CA SCREENING 1951 CT COLONOGRAPHY - COLON CA SCREENING 1950 Colorectal Cancer Screening 1950 FIT - COLON CA SCREENING 1950 FLEX SIG - COLON CA SCREENING 1950 LIPID TESTING 1950 HEPATITIS C SCREENING 12/02/1969 DTAP/TDAP/TD VACCINES (1 - Tdap) 12/06/1970 PNEUMOCOCCAL VACCINE 50+ (1 of 1 - PCV) 12/06/2001 ZOSTER VACCINE (1 of 2) 12/06/2001 AAA SCREENING 12/06/2016 COVID-19 VACCINE (1 - 2023-2 5 season) 2024 DEPRESSION SCREENING 06/27/2024 INFLUENZA VACCINE (Season Ended) 2025 Respiratory Syncytial Virus (RSV) Vaccine Pt: or over 60 yrs (1 - 1-dose 75+ series) 12/06/2026 HEPATITIS B VACCINE Aged Out No longe r eligible based on patient's age to complete this topic HIB VACCINE Aged Out No longer eligi ble based on patient's age to complete this topic HPV VACCINE Aged Out No longer eligi ble based on patient's age to complete this topic MENINGOCOCCAL (Group B) VACC INE SHARED DECISION-MAKING Aged Out No longer eligibl e based on patient's age to complete this topic MENINGOCOCCAL GROUPS A/C/Y/W VACCINE Aged Out No longer eligible b ased on patient's age to complete this topic Insurance MEDICAID - OUT OF STATE Care Teams Marine Equipment Design Engineer Relationship Specialty Start Date End Date Michael Crews MD [address] [place] [address] PCP - General 02/20/19
--- OUTSIDE RECORDS SUMMARY | 2024-10-18 11:38 | XMS_ITS | Encounter Summary ---
Author Organization [facility] Address [address] [place] [address] Phone Care Team Providers Care Counter Intelligence Name Role Phone Panchito Augustin MD Primary Care Provider [phone] Michael Crews MD Primary Care Provider [phone]- [phone] Kenneth Lundberg MD Unavailable [phone] Montse Johnson APRN, [facility] Unavailable + [phone] Reason for Visit * Reason Comments Medication Refill Encounter Details Date Type Department Care Team (Late st Contact Info) Description 05/29/2020 Refill [facility] [address] [place] [address] Panchito Augustin MD [address] [place] [address] Medication Refill Social History Tobacco Use Types Packs/Day Years Used Date Smoking Tobacco: Never Assessed Sex and Gender Information Value Date Recorded Sex Assigned at Not on file Legal Sex Male 4:51 PM CDT Gender Identity Not on file Sexual Orientation Not on file documented as of this encounter Miscellaneous Notes * Telephone Encounter - Marycruz Oliver RN - 05/29/2020 12:41 PM AMBULATORY TECHNOLOGIST Please review and sign. LATORY TECHNOLOGIST documented in this encounter Plan of Treatment Not on file documented as of this encounter Visit Diagnoses Not on filedocumented in this encounter Care Teams Counter Intelligence Relationship Specialty Start Date End Date Panchito Augustin MD [address] [place] [address] PCP - General Internal Medicine 03/27/20 08/03/21 Michael Crews MD [address] [place] [address] PCP - General Pediatrics 01/20/22 Kenneth Lundberg MD [address] [place] [id number] Consulting Physician Neurology 01/20/22 Montse Johnson, RIFLE CASE REPAIRER, SOIL CHEMIST [address] [place] [address] Nurse Practitioner Advanced Practice Nurse 02/26/22 documented as of this encounter
== END 2024-10-18 10:21 | disposition home or self-care (01) ==
PROVIDERS: PCP Family Medicine; Visit Provider Family Medicine
DX: I10 Essential (primary) hypertension (principal)
CPT/HCPCS: 36415; 80053; 81001; 82043; 84443; 85025

== ENCOUNTER 2025-05-16 11:05 | Outpatient (CLI) | payer MEDICARE, MEDICAID, SELFPAY ==
[2025-05-16 11:20] LABS: Hematocrit 41.1 % (37.0-46.0); Hemoglobin 13.9 g/dL (12.4-15.3); Mean Corpuscular HGB Conc 33.8 g/dL (32-36); Mean Corpuscular Hemoglobin 31.8 pg (27.0-31.0); Mean Corpuscular Volume 94.1 fL (78.0-102.0); Platelet Count Result 304 K/mm3 (150-420); Red Blood Count 4.37 M/mm3 (4.70-6.10); White Blood Count 9.5 K/mm3 (4.8-10.8)
[2025-05-16 11:35] LABS: MALB Creatinine Ratio 10.7 mg/g (0-30)
[2025-05-16 11:39] LABS: Alanine Aminotransferase 39 U/L (6-50); Albumin Level 4.4 g/dL (3.5-5.1); Alkaline Phosphatase 85 U/L (38-126); Anion Gap 7 mmol/L (4-12); Aspartate Amino Transferase 37 U/L (17-59); Bilirubin,Total 0.7 mg/dL (0.2-1.3); Blood Urea Nitrogen 8 mg/dL (9-20); Calcium 9.5 mg/dL (8.4-10.2); Carbon Dioxide 32 mmol/L (22-30); Chloride 104 mmol/L (98-107); Cholesterol 124 mg/dL (0-200); Estimated Glomerular Filt Rate > 60; Glucose 93 mg/dL (65-110); HDL Direct 52 mg/dL; Osmolality Calculated 294 mOsm/kg (285-295); Potassium 4.8 mmol/L (3.4-5.0); Sodium 143 mmol/L (137-145); Total Protein 7.1 g/dL (6.3-8.2); Triglycerides 102 mg/dL (<150)
[2025-05-16 12:09] LABS: Thyroid Stimulating Hormone 2.870 uIU/mL (0.465-4.680)
--- OUTSIDE RECORDS SUMMARY | 2025-05-16 13:53 | XMS_ITS | Encounter Summary ---
Author Organization [facility] Address [address] [place] [address] Phone Care Team Providers Care Tile And Mottle Supervisor Name Role Phone Panchito Augustin MD Primary Care Provider [phone] Michael Crews MD Primary Care Provider [phone] Kenneth Lundberg MD Unavailable [phone] Montse Johnson APRN, MANAGER GAME Unavailable + [phone] Reason for Visit * Reason Comments Medication Refill Encounter Details Date Type Department Care Team (Late st Contact Info) Description 05/29/2020 Refill [facility] [address] [place] [address] Panchito Augustin MD [address] [place] [address] Medication Refill Social History Tobacco Use Types Packs/Day Years Used Date Smoking Tobacco: Never Assessed Sex and Gender Information Value Date Recorded Sex Assigned at Not on file Legal Sex Male 4:51 PM CDT Gender Identity Not on file Sexual Orientation Not on file documented as of this encounter Miscellaneous Notes * Telephone Encounter - Marycruz Oliver RN - 05/29/2020 12:41 PM INSTRUCTIONAL AIDE Please review and sign. RUCTIONAL AIDE documented in this encounter Plan of Treatment Not on file documented as of this encounter Visit Diagnoses Not on filedocumented in this encounter Care Teams Tile And Mottle Supervisor Relationship Specialty Start Date End Date Panchito Augustin MD PCP - General Internal Medicine 03/27/20 08/03/21 Michael Crews MD [address] [place], [place] [id number] PCP - General Pediatrics 01/20/22 Kenneth Lundberg MD [address] [place] [id number] Consulting Physician Neurology 01/20/22 Montse Johnson APRN, MANAGER GAME [address] [place] [address] Nurse Practitioner Advanced Practice Nurse 02/26/22 documented as of this encounter
--- OUTSIDE RECORDS SUMMARY | 2025-05-16 13:53 | XMS_ITS | Clinical Summary ---
Author Organization [facility] [employer] Address [address] [place] [address] Care Team Providers Care Sand Miller Name Role Phone Michael Crews MD Primary Care Provider [phone]- [phone] Source Comments [facility] [employer],non-owned Affiliates and Associated Physician Practices is amultiple site organization consisting of ambulatory clinics and hospital sitesin [place], [place], [place] and [place]. This disclosure is being madepursuant to the Care Everywhere program and may not contain all information available regarding this patient. Last updated 18.[facility] [employer] Allergies No known active allergies Medications * [...] on file Legal Sex Male 6:24 PM DICE TABLE PERSON Gender Identity Not on file Sexual Orientation [...] (1 of 2) 12/06/2001 AAA SCREENING 12/06/2016 DEPRESSION SCREENING 06/27/2024 COVID-19 VACCINE (1 - 2024-2 6 season) 2025 INFLUENZA VACCINE (#1) 2025 Respiratory Syncytial Virus (RSV) Vaccine Pt: [...] MEDICAID - OUT OF STATE Care Teams Sand Miller Relationship Specialty Start Date End Date Michael Crews MD [address] [place] [address] PCP - General 02/20/19
--- OUTSIDE RECORDS SUMMARY | 2025-05-16 13:53 | XMS_ITS | Clinical Summary ---
Author Organization [facility] Address [address] [place] [address] Phone Care Team Providers Care Wall Man Name Role Phone Michael Crews MD Primary Care Provider [phone] Kenneth Lundberg MD Unavailable [phone] Montse Johnson APRN, WAIVER ANALYST Unavailable + [phone] Allergies Active Allergy Reactions Criticality Noted Date [...] Date Smoking Tobacco: Every Day Cigarettes 0.5 11.9 Started: 06/27/2013 Smokeless Tobacco: Never Tobacco Cessation:Ready [...] 10:48 AM CDT Height 177.8 cm (5' 10) 01/10/2023 10:48 AM CDT Body Mass Index 22.81 01/10/2023 10:48 AM CDT Plan of Treatment Health Maintenance Due Date Last Done Comments Hepatitis C Virus (HCV) Screening 1950 TdaP Immunization 1950 Cologuard 12/06/1996 Colonoscopy 12/06/1996 Colorectal Cancer Screening 12/06/1996 Immunochemical Fecal Occult Blood 12/06/1996 Pneumococcal Immunization (5 0+ years) (1 of 1 - PCV) 12/06/2001 Zoster Immunization (1 of 2) 12/06/2001 Medicare Initial AWV [id number] 11/25/2017 Influenza Immunization (#1) 2025 SARS-COV-2 Immunization (2 - season) 2025 09/02/2020 Respiratory Syncytial Virus (RSV) Immunization (Adult) (1 - 1-dose 75+ series) 12/06/2026 Hepatitis B Immunization Aged Out No longer eligible based on patient's age to complete this topic Human Papillomavirus (HPV) Immunization Aged Out No longer eligible b ased on patient's age to complete this topic Meningococcal Immunization (ACWY) Aged Out No longer eligible based on patient's age to complete this topic Rotavirus Immunization Aged Out No lo nger eligible based on patient's age to complete this topic Insurance [facility]ICARE C [facility] Care Teams Wall Man Relationship Specialty Start Date End Date Michael Crews MD [address] [place] [address] PCP - General Pediatrics 01/20/22 Kenneth Lundberg MD [address] [place] [address] Consulting Physician Neurology 01/20/22 Montse Johnson APRN, WAIVER ANALYST [address] [place] [address] Nurse Practitioner Advanced Practice Nurse 02/26/22
== END 2025-05-16 11:06 | disposition home or self-care (01) ==
LOC: CHSLAB 11:07
PROVIDERS: PCP Family Medicine; Visit Provider Family Medicine
DX: I10 Essential (primary) hypertension (principal)
CPT/HCPCS: 36415; 80053; 80061; 82043; 84443; 85027

== ENCOUNTER 2025-05-28 11:59 | Outpatient (CLI) | payer MEDICARE, MEDICAID, SELFPAY ==
--- NOTE | ~2025-05-28 | XR_ITS ---
EXAMINATION: XR chest 2V, 05/28/2025 12:15 STATION MASTER HISTORY: LOCALIZED SWELLING MASS AND LUMP, NECK COMPARISON: No comparisons available. Technique: 2 views obtained. Findings: The lungs are clear, no effusion. No pneumothorax. Heart is normal size. Mediastinal and hilar contours are within normal limits. Bony thorax no acute abnormality. Impression: No acute cardiopulmonary abnormality. Reviewed, dictated and finalized at location P. ION MASTER Impression: No acute cardiopulmonary abnormality.
--- OUTSIDE RECORDS SUMMARY | 2025-05-28 12:54 | XMS_ITS | Clinical Summary ---
Author Organization [facility] [employer] Address [address] [place] [address] Care Team Providers Care Investigative Shopper Name Role Phone Michael Crews MD Primary Care Provider [phone]- [phone] Source Comments [facility] [employer],non-owned Affiliates and Associated Physician Practices is amultiple site organization consisting of ambulatory clinics and hospital sitesin [place], [place], [place] and [place]. This disclosure is being madepursuant to the Care Everywhere program and may not contain all information available regarding this patient. Last updated 18.[facility] [employer] Allergies No known active allergies Medications * [...] on file Legal Sex Male 6:24 PM SPINNERET CLEANER Gender Identity Not on file Sexual Orientation [...] MEDICAID - OUT OF STATE Care Teams Investigative Shopper Relationship Specialty Start Date End Date Michael Crews MD [address] [place] [address] PCP - General 02/20/19
--- OUTSIDE RECORDS SUMMARY | 2025-05-28 12:54 | XMS_ITS | Encounter Summary ---
Author Organization [facility] Address [address] [place] [id number] Phone Care Team Providers Care Guide Dog Mobility Instructor Name Role Phone Panchito Augustin MD Primary Care Provider [phone] Michael Crews MD Primary Care Provider [phone] Kenneth Lundberg MD Unavailable [phone] Montse Johnson APRN, SECURITY SOLUTIONS ARCHITECT Unavailable + [phone] Reason for Visit * Reason Comments Medication Refill Encounter Details Date Type Department Care Team (Late st Contact Info) Description 05/29/2020 Refill [facility] [address] [place] [address] Panchito Augustin MD [address] [place] [address] Medication Refill Social History Tobacco Use Types Packs/Day Years Used Date Smoking Tobacco: Never Assessed Sex and Gender Information Value Date Recorded Sex Assigned at Not on file Legal Sex Male 4:51 PM CDT Gender Identity Not on file Sexual Orientation Not on file documented as of this encounter Miscellaneous Notes * Telephone Encounter - Marycruz Oliver RN - 05/29/2020 12:41 PM FLUE CLEANER Please review and sign. CLEANER documented in this encounter Plan of Treatment Not on file documented as of this encounter Visit Diagnoses Not on filedocumented in this encounter Care Teams Guide Dog Mobility Instructor Relationship Specialty Start Date End Date Panchito Augustin MD PCP - General Internal Medicine 03/27/20 08/03/21 Michael Crews MD [address] [place], [place] [id number] PCP - General Pediatrics 01/20/22 Kenneth Lundberg MD [address] [place] [id number] Consulting Physician Neurology 01/20/22 Montse Johnson APRN, SECURITY SOLUTIONS ARCHITECT [address] [place] [address] Nurse Practitioner Advanced Practice Nurse 02/26/22 documented as of this encounter
--- OUTSIDE RECORDS SUMMARY | 2025-05-28 12:54 | XMS_ITS | Clinical Summary ---
Author Organization [facility] Address [address] [place] [address] Phone Care Team Providers Care Leather Piece Inspector Name Role Phone Michael Crews MD Primary Care Provider [phone] Kenneth Lundberg MD Unavailable [phone] Montse Johnson APRN, MACHINIST APPRENTICE WOOD Unavailable + [phone] Allergies Active Allergy Reactions Criticality Noted Date [...] to complete this topic Insurance [facility] Care Teams Leather Piece Inspector Relationship Specialty Start Date End Date Michael Crews MD [address] [place] [address] PCP - General Pediatrics 01/20/22 Kenneth Lundberg MD [address] [place] [address] Consulting Physician Neurology 01/20/22 Montse Johnson APRN, MACHINIST APPRENTICE WOOD [address] [place] [address] Nurse Practitioner Advanced Practice Nurse 02/26/22
== END 2025-05-28 12:00 | disposition home or self-care (01) ==
LOC: CHSIMG 12:04
PROVIDERS: PCP Family Medicine; Visit Provider Family Medicine
DX: R09.89 Other specified symptoms and signs involving the circulatory and respiratory systems (principal); R22.1 Localized swelling, mass and lump, neck
CPT/HCPCS: 71046

== ENCOUNTER 2025-05-30 12:18 | Outpatient (CLI) | payer MEDICARE, MEDICAID, SELFPAY ==
--- NOTE | ~2025-05-30 | US_ITS ---
US arterial ankle brachial ind INDICATION: Absent pedal pulses TECHNIQUE: Segmental pressures and plethysmographic and Doppler waveforms of the brachial and lower extremity arteries were obtained. COMPARISON: None. FINDINGS: Right and left brachial artery pressures of 116 mm Hg and 100 mm Hg, respectively, are concordant (normal difference <= 30 mmHg). The right ankle-brachial index (KAIN) is 0.96 (normal >= 0.9-1.0). The right great toe-brachial index (TBI) is 5 1 (normal >= 0.60). The left KAIN is 0.99. The left TBI is 0.86. IMPRESSION: 1. Right toe brachial index measuring 0.51 is abnormal, suggesting distal tibial/pedal small vessel disease despite normal KAIN. Normal left toe brachial index. 2: Normal ankle-brachial indices. Reviewed, dictated and finalized at location I. GRAPHER IMPRESSION: 1. Right toe brachial index measuring 0.51 is abnormal, suggesting distal tibia l/pedal small vessel disease despite normal KAIN. Normal left toe brachial index . 2: Normal ankle-brachial indices.
--- NOTE | ~2025-05-30 | US_ITS ---
US soft tissue head and neck INDICATION: Palpable neck lump TECHNIQUE: Real-time sonographic images of the thyroid gland were obtained. COMPARISON: No prior studies for comparison. FINDINGS: The right thyroid lobe measures 4.2 x 2 x 1.4 cm. The left thyroid lobe measures 3.2 x 1.2 x 1.6 cm. There is heterogeneous echotexture and echogenicity throughout the thyroid gland. There is a small oval hypoechoic cyst of the left thyroid lobe, benign. No suspicious sonographic abnormalities of the thyroid gland. Normal vascular flow is present. IMPRESSION: 1. No suspicious masses are identified in the thyroid gland to suggest malignancy. No masses meet sonographic criteria for biopsy. Reviewed, dictated and finalized at location I. STANT PROFESSOR IN FAMILY STUDIES IMPRESSION: 1. No suspicious masses are identified in the thyroid gland to suggest maligna ncy. No masses meet sonographic criteria for biopsy.
== END 2025-05-30 12:19 | disposition home or self-care (01) ==
LOC: CHSIMG 12:20
PROVIDERS: PCP Family Medicine; Visit Provider Family Medicine
DX: R09.89 Other specified symptoms and signs involving the circulatory and respiratory systems (principal); R22.1 Localized swelling, mass and lump, neck
CPT/HCPCS: 76536; 93922